=== PATIENT | female | born 1940 | race Caucasian/White ===

== ENCOUNTER → 2025-04-19 | Outpatient (CLI) | payer OTHER ==
--- NOTE | 2025-04-19 14:58 | DVH ---
Procedure: NM BONE WHOLE BODY Exam Date: 04/19/2025 11:04 AM Reason for study/Clinical History: POSS METATASIS Comparison Study: None Prior correlative imaging: None available Nuclear Medicine Whole Body Bone Scan Technique: Following the intravenous administration of 25.3 millicuries of technetium 99m labeled MDP, whole bod y images in the anterior and posterior projections were obtained 3 hours following the administration of radiopharmaceutical. Findings: There is mild symmetric multifocal activity overlying both shoulders consistent with mild degenerativ e change. The expected mild activity is noted overlying both kidneys and the bladder without evidence of obstru ction. Foci of increased metabolic activity is present in the left upper scapula, left lateral orbital ridge , left mandible, cervical spine and right SI joint. Impression: Foci of increased metabolic activity are present in the left upper scapula, left lateral orbital ridg e, left mandible, cervical spine and right SI joint. These may represent metastatic lesions. Clinica l correlation advised. Mild multifocal activity consistent with degenerative changes as described above.
== END | disposition home or self-care (01) ==
LOC: XYW 07:28
DX: C79.51 Secondary malignant neoplasm of bone (principal); C50.211 Malignant neoplasm of upper-inner quadrant of right female breast; R97.8 Other abnormal tumor markers; Z17.0 Estrogen receptor positive status [ER+]; Z79.811 Long term (current) use of aromatase inhibitors
CPT/HCPCS: 78306; A9503